=== PATIENT | male | born 1990 | race Caucasian/White ===

== ENCOUNTER 2020-01-09 14:17 | Emergency (ER) | payer OTHER ==
--- NOTE | 2020-01-09 14:52 | EDM.PDOC ---
ED HPI GENERAL MEDICAL PROBLEM - General Chief Complaint: Genitourinary Problem Stated Complaint: TESTICLE PAIN RT SIDE Time Seen by Provider: 01/09/20 14:47 Source of Information: Reports: Patient History Limitations: Reports: No Limitations - History of Present Illness INITIAL COMMENTS - FREE TEXT/NARRATIVE: This 29-year-old male was seen at the [facility] and thought to have a possible abscess to his testicle. He has a history of testicular abscess at that time had an ultrasound and was given antibiotics. Patient states he has similar symptoms at this time Onset: Today Duration: Day(s): Location: Reports: Other (Testes) Quality: Reports: Ache Severity: Moderate Improves with: Reports: None Associated Symptoms: Reports: No Other Symptoms right testicle Pain Score (Numeric/FACES): 5 - Related Data Allergies Allergy/AdvReac Type Severity Reaction Status Date / Time No Known Allergies Allergy Verified 01/09/20 14:40 Home Meds: Home Meds SUMAtriptan [Imitrex] 1 dose PO DAILY 01/09/20 [History] Past Medical History - Past Health History Medical/Surgical History: Denies Medical/Surgical History - Infectious Disease History Infectious Disease History: Reports: Chicken Pox Social & Family History - Family History Family Medical History: Noncontributory - Tobacco Use Smoking Status *Q: Never Smoker ED ROS GENERAL - Review of Systems Review Of Systems: See Below Constitutional: Reports: No Symptoms. Denies: Fever, Diaphoresis HEENT: Reports: No Symptoms. Denies: Contact Lenses, Rhinitis, Vision Change Respiratory: Reports: No Symptoms. Denies: Shortness of Breath Cardiovascular: Reports: No Symptoms. Denies: Chest Pain, Edema, PND Endocrine: Reports: No Symptoms. Denies: Fatigue GI/Abdominal: Reports: No Symptoms : Reports: Other (Testicular pain) Musculoskeletal: Reports: No Symptoms Skin: Reports: No Symptoms Neurological: Reports: No Symptoms Psychiatric: Reports: No Symptoms Hematologic/Lymphatic: Reports: No Symptoms Immunologic: Reports: No Symptoms ED EXAM, RENAL/ - Physical Exam Exam: See Below Text/Narrative:: This 29-year-old presents emergency room with a chief complaint of right testicle pain. Patient states he had a testicular abscess in the past and has similar symptoms. Patient in no acute distress at this time Exam Limited By: No Limitations General Appearance: Alert, WD/WN, No Apparent Distress Eye Exam: Bilateral Eye: Abnormal EOM, Abnormal Pupil, Normal Fundi, Normal Inspection Ears: Normal External Exam, Normal Canal, Normal TMs Nose: Normal Inspection, Normal Mucosa Throat/Mouth: Normal Inspection, Normal Lips, Normal Oropharynx, Normal Voice Head: Atraumatic, Normocephalic Neck: Normal Inspection, Supple, Non-Tender, Full Range of Motion Respiratory/Chest: No Respiratory Distress, Lungs Clear, Normal Breath Sounds, No Accessory Muscle Use Cardiovascular: Normal Peripheral Pulses, Regular Rate, Rhythm GI/Abdominal: Normal Bowel Sounds, Soft, Non-Tender, No Distention (Male) Exam: No Hernia, Normal Inspection, Normal Prostate, Scrotum Tenderness (R), Suprapubic Fullness, Testicular Tenderness (R) Rectal (Males) Exam: Deferred Back Exam: Normal Inspection, Full Range of Motion Neurological: Alert, Oriented, CN II-XII Intact, Normal Cognition, Normal Reflexes, No Motor/Sensory Deficits Psychiatric: Normal Affect, Normal Mood Skin Exam: Warm, Dry, Intact, Normal Color, No Rash Lymphatic: No Adenopathy Course - Vital Signs Text/Narrative:: Patient's ultrasound came back as normal. We will place the patient on antibiotics and instructed patient to follow-up with primary care physician. Last Recorded V/S: Last Vital Signs Temp 96.9 F 01/09/20 14:37 Pulse 78 01/09/20 14:37 Resp 16 01/09/20 14:37 BP 127/82 01/09/20 14:37 Pulse Ox 99 01/09/20 14:37 Departure - Departure Time of Disposition: 16:35 Disposition: Home, Self-Care 01 Condition: Good Clinical Impression: Testicular pain, unspecified - Discharge Information Referrals: Rl Herrera BICYCLE REPAIRER [Primary Care Provider] - Forms: ED Department Discharge Additional Instructions: The patient is to take the antibiotics as prescribed Patient is to follow-up with his primary care physician within 48 hours and more return to the emergency room if severe pain. Patient is to use warm compresses on the area 2. Sepsis Event Note - Evaluation Sepsis Screening Result: No Definite Risk - Focused Exam Vital Signs: Vital Signs Temp Pulse Resp BP Pulse Ox 01/09/20 14:37 96.9 F 78 16 127/82 99 Date Exam was Performed: 01/09/20 Time Exam was Performed: 16:34
--- NOTE | 2020-01-09 15:50 | US ---
Testicular ultrasound: Multiple real-time images of the testicles were obtained. Testicles have a homogeneous ultrasound appearance. No intratesticular abnormality is appreciated. Doppler blood flow is noted within both testicles which is both arterial and venous. No abnormality is seen within the epididymides. No hydrocele is seen. Impression: 1. No abnormality is appreciated on testicular ultrasound exam. Diagnostic code #1 This report was dictated in MDT
--- NOTE | 2020-01-09 16:07 | US ---
EXAM DATE: 01/09/20 PATIENT'S AGE: 29 Testicular ultrasound: Multiple real-time images of the testicles were obtained. Testicles have a homogeneous ultrasound appearance. No intratesticular abnormality is appreciated. Doppler blood flow is noted within both testicles which is both arterial and venous. No abnormality is seen within the epididymides. No hydrocele is seen. Impression: 1. No abnormality is appreciated on testicular ultrasound exam. Diagnostic code #1 This report was dictated in MDT Report Signed by Proxy. ANNA
== END 2020-01-09 16:52 | disposition home or self-care (01) ==
LOC: MW.ED 14:17
DX: N50.811 Right testicular pain (principal)
CPT/HCPCS: 76870; 76870-26; 93976; 93976-26; 99282; 99284-25